=== PATIENT | female | born 1990 | race Two or more races ===

== ENCOUNTER 2016-11-11 10:17 | Day surgery (SDC) | payer BC ==
[~2016-11-11] VITALS: Ht 157.5 cm; Wt 73.5 kg
[~2016-11-11 10:17] MED LIST: BACTRIM,SEPT1 TABLET PO; DOXYCYCLINE HY100 M3 PO; FLEXERIL10 MG PO; FLOVENT DISKUS1 DIS2 IH; IBUPROFEN600 MG PO; IRON325 M1 PO; MOTRIN600 MG PO; OMNICEF300 MG PO; PRENATAL TABLE1 EAC3 PO; PROCARDIA XL,AD30 MG PO; SOMA350 MG PO; SUDAFED 12-HOU120 MG PO; VICODIN; VICODIN 5-5001 EACH PO
[2016-11-11 10:41] VITALS: BP 116/84
[2016-11-11 11:52] LABS: METH RESISTANT S AUREUS PCR NEGATIVE (NEGATIVE); PROBE CHECK PASS; SPECIMEN PROCESSING CONTROL PASS
[2016-11-11 14:17] VITALS: BP 113/73
[2016-11-11 15:14] VITALS: BP 111/69
== END 2016-11-11 15:12 | disposition home or self-care (01) ==
LOC: SDC 10:17
PROVIDERS: Surgery
PROC: 0WQF0ZZ Repair Abdominal Wall, Open Approach (ICD-10-PCS; principal; 2016-11-11)
DX: O99.612 Diseases of the digestive system complicating pregnancy, second trimester (principal); K42.0 Umbilical hernia with obstruction, without gangrene; O16.2 Unspecified maternal hypertension, second trimester; I10 Essential (primary) hypertension; O99.212 Obesity complicating pregnancy, second trimester; Z3A.20 20 weeks gestation of pregnancy; Z88.0 Allergy status to penicillin
CPT/HCPCS: 87641; J0131; J0690; J1100; J2250; J2405; J3010; Q0175; S0020

== ENCOUNTER 2017-03-05 07:32 | Inpatient (IN) | payer BC, OTHER ==
[~2017-03-05] VITALS: Ht 157.5 cm; Wt 80.9 kg
[2017-03-05] VITALS (15 sets, daily range): BP systolic 116–133; BP diastolic 58–87
[2017-03-05 09:13] LABS: EOSINOPHIL (%) 1.6 % (0-5); EOSINOPHIL COUNT 0.2 K/uL (0-0.3); HEMATOCRIT 30.2 % (36.0-46.0); IMMATURE GRANULOCYTE (%) 0.6 % (0.0-0.7); IMMATURE GRANULOCYTE COUNT 0.1 K/uL; INSTRUMENT ABS NEUTROPHIL CT 6.8 K/uL; LYMPHOCYTE COUNT 2.9 K/uL (1.0-2.8); MCH 31.7 PG (29.0-34.0); MCHC 33.4 G/DL (30.0-36.0); MCV 94.7 FL (83-99); MEAN PLAT.VOLUME 9.8 uM^3 (9.5-12.4); MONOCYTE (%) 7.5 % (3-12); MONOCYTE COUNT 0.8 K/uL (0-0.8); NEUTROPHIL (%) 63.3 % (45-76); NEUTROPHIL COUNT 6.8 K/uL (1.8-6.4); PLATELET COUNT 401 K/uL (156-360); RBC DIS.WIDTH-CV 13.5 % (11.8-14.6); RBC DIS.WIDTH-SD 46.5 % (39-53); RED BLOOD COUNT 3.19 M/uL (3.80-5.20); WHITE BLOOD COUNT 10.7 K/uL (4.1-10.2)
[2017-03-05] MEDS ORDERED: IBUPROFEN800 MG PO (15:33)
[2017-03-05] MEDS ORDERED: DOCUSATE SODIU100 MG PO (15:33)
[2017-03-06 07:17] VITALS: BP 102/59
[2017-03-06 14:54] VITALS: BP 114/66
== END 2017-03-06 18:10 | disposition home or self-care (01) | DRG 775 ==
LOC: LDRP-OP 07:32 → 2WEST 07:33 → LDRP-OP 22:54 → 2WEST 03-06 08:45 → LDRP-OP 04-11 08:01
PROVIDERS: Obstetrics & Gynecology Gynecology
PROC: 00HU33Z Insertion of Infusion Device into Spinal Canal, Percutaneous Approach (ICD-10-PCS; principal; 2017-03-05)
PROC: 0U7C7ZZ Dilation of Cervix, Via Natural or Artificial Opening (ICD-10-PCS; principal; 2017-03-05)
PROC: 3E033VJ Introduction of Other Hormone into Peripheral Vein, Percutaneous Approach (ICD-10-PCS; principal; 2017-03-05)
PROC: 10907ZC Drainage of Amniotic Fluid, Therapeutic from Products of Conception, Via Natural or Artificial Opening (ICD-10-PCS; principal; 2017-03-05)
PROC: 10E0XZZ Delivery of Products of Conception, External Approach (ICD-10-PCS; principal; 2017-03-05)
PROC: 3E0R3BZ Introduction of Anesthetic Agent into Spinal Canal, Percutaneous Approach (ICD-10-PCS; principal; 2017-03-05)
DX: O99.334 Smoking (tobacco) complicating childbirth (principal); F17.210 Nicotine dependence, cigarettes, uncomplicated; Z3A.39 39 weeks gestation of pregnancy; Z37.0 Single live birth
CPT/HCPCS: 85025; 86850; 86900; 86901; C1755; J1050; J7120

== ENCOUNTER 2017-05-21 05:41 | Day surgery (SDC) | payer BC, OTHER ==
[~2017-05-21] VITALS: Ht 157.5 cm; Wt 72.1 kg
[~2017-05-21 05:41] MED LIST changes: +DOCUSATE SODIU100 MG PO; +IBUPROFEN800 MG PO
[2017-05-21 06:48] VITALS: BP 127/78
[2017-05-21] MEDS ORDERED: IBUPROFEN800 MG PO (10:08)
[2017-05-21] MEDS ORDERED: ENDOCET 5-3251 EACH PO (10:08)
[2017-05-21 10:20] VITALS: BP 123/82
[2017-05-21 11:38] VITALS: BP 124/83
== END 2017-05-21 11:40 | disposition home or self-care (01) ==
LOC: SDC 05:41
PROC: 0UT74ZZ Resection of Bilateral Fallopian Tubes, Percutaneous Endoscopic Approach (ICD-10-PCS; principal; 2017-05-21)
DX: Z30.2 Encounter for sterilization (principal); I10 Essential (primary) hypertension; Z88.0 Allergy status to penicillin; F17.200 Nicotine dependence, unspecified, uncomplicated
CPT/HCPCS: 87641; 88302; J0131; J1170; J1885; J2250; J2405; J2710; J2765; J3010; Q0175; S0020

== ENCOUNTER 2017-09-28 23:24 | Emergency (ER) | payer OTHER ==
[~2017-09-28] VITALS: Ht 157.5 cm; Wt 72.2 kg
[~2017-09-28 23:24] MED LIST changes: +ENDOCET 5-3251 EACH PO
[2017-09-28 23:57] LABS: HEMATOCRIT 38.8 % (36.0-46.0); HEMOGLOBIN 12.7 G/DL (11.9-15.5); MCH 29.7 PG (29.0-34.0); MCHC 32.7 G/DL (30.0-36.0); MCV 90.9 FL (83-99); PLATELET COUNT 372 K/uL (156-360); RBC DIS.WIDTH-CV 13.2 % (11.8-14.6); RBC DIS.WIDTH-SD 43.4 % (39-53); RED BLOOD COUNT 4.27 M/uL (3.80-5.20)
[2017-09-29 00:09] LABS: ALBUMIN 4.3 g/dL (3.2-4.8); CHLORIDE 106 mEq/L (99-109); POTASSIUM 4.3 mEq/L (3.7-5.4); SODIUM 137 mEq/L (136-147)
[2017-09-29 00:11] LABS: GLUCOSE 89 mg/dL (70-99); TOTAL PROTEIN 7.3 g/dL (6.4-8.3)
[2017-09-29 00:13] LABS: TOTAL BILIRUBIN 0.3 mg/dL (0.0-1.0)
[2017-09-29 00:14] LABS: ALKALINE PHOSPHATASE 72 IU/L (3-129)
[2017-09-29 00:15] LABS: CREATININE 0.9 mg/dL (0.6-1.3); GFR ESTIMATE (CALCULATED) > 59 mL/min/
[2017-09-29 00:16] LABS: AST (GOT) 10 IU/L (2-34); UREA NITROGEN (BUN) 14 mg/dL (9-23)
[2017-09-29 00:18] LABS: ALT (GPT) 8 IU/L (3-49)
[2017-09-29 00:25] LABS: QUANTITATIVE HCG < 4.0 MIU/ML
[2017-09-29 01:33] LABS: APPEARANCE CLEAR ((CLEAR)); BILIRUBIN NEGATIVE; BLOOD NEGATIVE; COLOR YELLOW ((YELLOW)); GLUCOSE (STRIP) NEGATIVE; KETONES NEGATIVE; LEUKOCYTES NEGATIVE; NITRITE NEGATIVE; PROTEIN (STRIP) NEGATIVE; SPECIFIC GRAVITY 1.018 (1.000-1.030); UCUL ADDED? NO; UROBILINOGEN 0.2 MG/DL (0.2-1.0)
[2017-09-29] MEDS ORDERED: NORCO 7.5/321 TABLET PO (01:43)
[2017-09-29] MEDS ORDERED: MOTRIN800 MG PO (01:43)
[2017-09-29 02:00] VITALS: BP 142/90
== END 2017-09-29 02:03 | disposition home or self-care (01) ==
LOC: EME 23:24
DX: N83.201 Unspecified ovarian cyst, right side (principal); N94.10 Unspecified dyspareunia; I10 Essential (primary) hypertension; F17.200 Nicotine dependence, unspecified, uncomplicated; Z88.0 Allergy status to penicillin; Z91.040 Latex allergy status
CPT/HCPCS: 76856; 80053; 81003; 84702; 85027; 99281; 99284; J1885; J3010